=== PATIENT | male | born 1970 | race Caucasian/White ===

== ENCOUNTER 2017-11-19 14:48 | Emergency (ER) | payer BC, OTHER ==
[~2017-11-19] VITALS: Ht 190.5 cm; Wt 84.8 kg
[2017-11-19 15:00] VITALS: TEMP 37; Ht 190.5 cm; Wt 84.8 kg
[2017-11-19] MEDS ORDERED: SODIUM CHLORIDE 0.9% 500ML 500 ML IV SCH (16:30)
--- NOTE | 2017-11-19 16:37 | EMERGENCY ROOM VISIT NOTE ---
History First contact with patient: 16:11 (Alka. Bhatia MD) First contact with patient: 16:11 (Jonathan Doll M.D.) Chief Complaint: VOMITING Stated Complaint: LIGHTHEADEDNESS, NAUSEA, VOMITING, ABDOMINAL PAIN Nursing Triage Summary: Pt states, "I have midsection stomach pain that started last . I woke up with that, nausea and lightheadedness. I started feeling better Fri and through the weekend. Then this morning about 4am it hit again. I get intermittent chills. Over the past three hours I have thrown up intermittently. I threw up three times." Denies diarrhea. (Alka. Bhatia MD) History of Present Illness The patient is a 47 year old male who presents to the Emergency Room with complaints of abdominal pain associated with dizziness, nausea and vomiting. Pain started but is intermittent, and felt in the epigastric region and described as indigestion pain. There is no radiation. Triggers that make the pain/nausea worse include ambulation and bending over, rest makes the pain better but it is difficult to find a comfortable position for long. Patient did not try any OTC meds. Patients symptoms improved over the weekend, but woke him up from sleep this morning. Symptoms did not improve with sleep this time. Nausea lead to 3 episodes of vomiting today - non bloody. Associated symptoms include diaphoresis with vomiting, felt like the room was spinning, and tremors. Denies alcohol and tobacco usage. He otherwise denies fevers/chills, headaches, CP, palpitations, dyspnea, lower extremity swelling or rashes. His appetite is diminished, he denies urinary symptoms, although he admits to concentrated urine, and he is stooling appropriately. No recent travel. Sick contacts: people at work have had stomach bug. No previous abdominal, pelvic, back surgeries. Source of History: patient Onset: 4 days ago Symptom Intensity: minimal Quality: ache Timing: intermittent Modifying Factors (Worsening): movement Modifying Factors (Relieving): rest Associated Symptoms: + diaphoresis, + vomiting, + abdominal pain, + weakness (Alka. Bhatia MD) Review of Systems See HPI for pertinent positives and negatives. A total of ten systems were reviewed and were otherwise negative. (Alka. Bhatia MD) Social History Smoking Status: Never Smoker Smokeless Tobacco Use: No Alcohol Use: none Drug Use: none Marital Status: Housing Status: lives with family Occupation Status: employed (Alka. Bhatia MD) Current/Historical Medications Scheduled PRN Ondansetron Hcl (Zofran), 4 MG PO Q8H PRN for Nausea Physical Exam Vital Signs Date Time Temp Pulse Resp B/P (MAP) Pulse Ox O2 Delivery O2 Flow Rate FiO2 11/19/17 18:14 68 20 123/65 98 Room Air 11/19/17 16:50 84 20 136/81 98 Room Air 11/19/17 15:00 37.0 81 16 121/69 97 Room Air (Jonathan Doll M.D.) Physical Exam GENERAL: alert, anxious-appearing, thin, lying in bed, slightly tremulous, non- toxic HEAD: Normocephalic, atraumatic. No sinus tenderness. EYES: PERRL, EOMI, normal sclera and conjunctiva OROPHARYNX: No exudate, no erythema. Lips, buccal mucosa, and tongue normal and mucous membranes are tacky NECK: Supple, no nuchal rigidity, no adenopathy, non-tender LUNGS: No reproducible chest tenderness. Clear to auscultation. Normal chest wall mechanics, good air entry. No crepitations, crackles, or wheezes HEART: RRR, S1 and S2 normal, no murmurs appreciated ABDOMEN: Soft, mild epigastric tenderness - no RLQ pain, normo-active bowel sounds, no masses, no rebound or guarding. Obturator and psoas signs negative. BACK: Back is symmetrical on inspection, no deformities, no midline tenderness, no CVA tenderness. SKIN: Warm, pink, dry. No erythema, rashes, or bruising. EXTREMITIES: Grossly normal. Moving all 4 limbs, strength 5/5. No pitting edema. Calves non tender. NEURO: Alert, Ox3. No focal deficits. Normal sensorium, cranial nerves II-XII grossly intact, normal speech. PSYCH: Mood and affect appropriate. (Alka. Bhatia MD) Medical Decision & Procedures Laboratory Results 11/19/17 16:35 Red Blood Count 5.46, Mean Corpuscular Volume 87.5, Mean Corpuscular Hemoglobin 31.3, Mean Corpuscular Hemoglobin Concent 35.8, Mean Platelet Volume 11.3, Neutrophils (%) (Auto) 86.3, Lymphocytes (%) (Auto) 9.2, Monocytes (%) (Auto) 3.9, Eosinophils (%) (Auto) 0.2, Basophils (%) (Auto) 0.2, Neutrophils # (Auto) 11.16, Lymphocytes # (Auto) 1.19, Monocytes # (Auto) 0.51, Eosinophils # (Auto) 0.03, Basophils # (Auto) 0.03 11/19/17 16:35 Test 11/19/17 16:35 11/19/17 17:00 White Blood Count 12.94 K/uL (4.8-10.8) Red Blood Count 5.46 M/uL (4.7-6.1) Hemoglobin 17.1 g/dL (14.0-18.0) Hematocrit 47.8 % (42-52) Mean Corpuscular Volume 87.5 fL (80-100) Mean Corpuscular Hemoglobin 31.3 pg (25-34) Mean Corpuscular Hemoglobin Concent 35.8 g/dl (32-36) Platelet Count 197 K/uL (130-400) Mean Platelet Volume 11.3 fL (7.4-10.4) Neutrophils (%) (Auto) 86.3 % Lymphocytes (%) (Auto) 9.2 % Monocytes (%) (Auto) 3.9 % Eosinophils (%) (Auto) 0.2 % Basophils (%) (Auto) 0.2 % Neutrophils # (Auto) 11.16 K/uL (1.4-6.5) Lymphocytes # (Auto) 1.19 K/uL (1.2-3.4) Monocytes # (Auto) 0.51 K/uL (0.11-0.59) Eosinophils # (Auto) 0.03 K/uL (0-0.5) Basophils # (Auto) 0.03 K/uL (0-0.2) RDW Standard Deviation 40.2 fL (36.4-46.3) RDW Coefficient of Variation 12.6 % (11.5-14.5) Immature Granulocyte % (Auto) 0.2 % Immature Granulocyte # (Auto) 0.02 K/uL (0.00-0.02) Urine Color YELLOW Urine Appearance CLEAR (CLEAR) Urine pH 7.5 (4.5-7.5) Urine Specific [place] 1.019 (1.000-1.030) Urine Protein NEG (NEG) Urine Glucose (UA) NEG (NEG) Urine Ketones 3+ (NEG) Urine Occult Blood NEG (NEG) Urine Nitrite NEG (NEG) Urine Bilirubin NEG (NEG) Urine Urobilinogen NEG (NEG) Urine Leukocyte Esterase NEG (NEG) Anion Gap 10.0 mmol/L (3-11) Est Creatinine Clear Calc Drug Dose 101.2 ml/min Estimated GFR () 93.8 Estimated GFR (Non- 81.0 BUN/Creatinine Ratio 10.7 (10-20) Calcium Level 9.1 mg/dl (8.5-10.1) Total Bilirubin 0.6 mg/dl (0.2-1) Aspartate Amino Transf (AST/SGOT) 17 U/L (15-37) Alanine Aminotransferase (ALT/SGPT) 27 U/L (12-78) Alkaline Phosphatase 58 U/L (45-117) Troponin I < 0.015 ng/ml (0-0.045) Total Protein 8.6 gm/dl (6.4-8.2) Albumin 4.5 gm/dl (3.4-5.0) Globulin 4.1 gm/dl (2.5-4.0) Albumin/Globulin Ratio 1.1 (0.9-2) Lipase 107 U/L (73-393) Thyroid Stimulating Hormone (TSH) 0.714 uIu/ml (0.300-4.500) Influenza Type A Antigen Neg for Influ A (NEG) Influenza Type B Antigen Neg for Influ B (NEG) Laboratory results reviewed by me (Jonathan Doll M.D.) Medications Administered Medications (Trade) Dose Ordered Sig/Adrianne Route Start Time Stop Time Status Last Admin Dose Admin Sodium Chloride 500 ml @ 125 mls/hr Q4H IV 11/19/17 16:30 11/19/17 18:54 DC 11/19/17 16:30 125 MLS/HR Ondansetron HCl (Zofran Inj) 4 mg NOW STAT IV 11/19/17 16:51 11/19/17 16:52 DC 11/19/17 17:04 4 MG Al Hydroxide/Mg Hydroxide (Maalox Susp) 30 ml STK-MED ONCE .ROUTE 11/19/17 17:02 11/19/17 17:03 DC 11/19/17 17:04 30 ML Lidocaine HCl (Viscous Lidocaine 2% Soln) 20 ml STK-MED ONCE .ROUTE 11/19/17 17:02 11/19/17 17:03 DC 11/19/17 17:04 20 ML (Jonathan Doll M.D.) ED Course 16:20 Patient assessed 16:37 Ordered labs, IVF, IV Zofran and GI cocktail 15:02: Patient re-evaluated, states feeling better, less tremulous (Alka. Bhatia MD) Medical Decision Prior records/ancillary studies reviewed. Triage Nursing notes reviewed. Additional history obtained from . The patient's history was concerning for abdominal pain. Differential diagnosis: Etiologies such as appendicitis, diverticulitis, PUD, biliary pathology, UTI, pancreatitis, obstruction, mesenteric ischemia, aortic pathology, infections, inflammatory bowel disease, renal colic, as well as others were entertained. Physical examination findings: As above. ER treatment provided: IVF NSS, IV Zofran 4mg, GI cocktail On reassessment the patient felt better. Diagnostics interpreted by me: The labs revealed mild leukocytosis, but otherwise normal CBC, BMP, LFT, lipase. Negative flu serology. Urinalysis revealed significant ketones 3+ but no other signs of infection. The patient was informed about the findings as listed above. All questions were answered and he was pleased with the treatment. He was advised for rest, increase PO fluid intake and anti-emetics as needed, Return instructions were outlined and the patient was discharged in stable condition. Outpatient prescription management: PO Zofran 4mg q8h PRN nausea Referral: The patient was referred back to their primary care physician for follow-up in 2 to 3 days for a recheck of the current condition. (Alka. Bhatia MD) Medication Reconcilliation Current Medication List: was personally reviewed by me (Alka. Bhatia MD) Blood Pressure Screening Patient's blood pressure: Normal blood pressure (Alka. Bhatia MD) Impression Primary Impression: Dehydration Additional Impression: Vomiting Departure Information Dispostion Home / Self-Care Condition GOOD Prescriptions Ondansetron Hcl (ZOFRAN) 4 Mg Tab 4 MG PO Q8H Y for Nausea, #14 TAB Prov: Alka. Bhatia MD 11/19/17 Referrals No Doctor, Assigned (PCP) Patient Instructions My [facility] Resident Tracking Resident Involvement: Resident Care Provided Care Provided: Adult Hospital Medicine (Alka. Bhatia MD) Problem Qualifiers Additional Impression: Vomiting Vomiting type: unspecified Vomiting Intractability: non-intractable Nausea presence: with nausea Qualified Codes: R11.2 - Nausea with vomiting, unspecified
[2017-11-19 16:43] LABS: BASO % 0.2 %; BASO ABS # 0.03 K/uL (0-0.2); EOS % 0.2 %; EOS ABS # 0.03 K/uL (0-0.5); HEMATOCRIT 47.8 % (42-52); HEMOGLOBIN 17.1 g/dL (14.0-18.0); IG# 0.02 K/uL (0.00-0.02); LYMPH % 9.2 %; LYMPH ABS # 1.19 K/uL (1.2-3.4); MEAN CELL VOLUME 87.5 fL (80-100); MEAN CORPUSCULAR HEMOGLOBIN 31.3 pg (25-34); MEAN CORPUSCULAR HGB CONC 35.8 g/dl (32-36); MEAN PLATELET VOLUME 11.3 fL (7.4-10.4); MONO % 3.9 %; MONO ABS # 0.51 K/uL (0.11-0.59); NEUT % 86.3 %; NEUT ABS # 11.16 K/uL (1.4-6.5); PLATELET COUNT 197 K/uL (130-400); RED CELL DISTRIBUTION WIDTH CV 12.6 % (11.5-14.5); RED CELL DISTRIBUTION WIDTH SD 40.2 fL (36.4-46.3); WHITE BLOOD COUNT 12.94 K/uL (4.8-10.8)
--- NOTE | 2017-11-19 16:48 | EMERGENCY ROOM VISIT NOTE ---
ED Visit Note First contact with patient: 16:11 The patient was seen and examined with Dr. Bhatia, resident physician. I agree with the history, physical and findings. Please see the note for disposition and details.
[2017-11-19] MEDS ORDERED: ONDANSETRON INJ 2 MG/ML 2 ML VIAL IV STA (16:51)
[2017-11-19] MEDS ORDERED: GI COCKTAIL PO ONE (17:00)
[2017-11-19] MEDS ORDERED: ALUMINUM/MAGNESIUM SUSP 30 ML UDC ONE (17:02)
[2017-11-19] MEDS ORDERED: LIDOCAINE HCL 2% VISC SOLN 20 ML UDC ONE (17:02)
[2017-11-19 17:03] LABS: ALBUMIN 4.5 gm/dl (3.4-5.0); ALT/SGPT 27 U/L (12-78); BLOOD UREA NITROGEN 12 mg/dl (7-18); CALCIUM 9.1 mg/dl (8.5-10.1); CARBON DIOXIDE 27 mmol/L (21-32); CREATININE 1.09 mg/dl (0.60-1.40); GLUCOSE 110 mg/dl (70-99); LIPASE 107 U/L (73-393); POTASSIUM 3.6 mmol/L (3.5-5.1); SODIUM 140 mmol/L (136-145)
[2017-11-19 17:14] LABS: ALKALINE PHOSPHATASE 58 U/L (45-117); AST/SGOT 17 U/L (15-37); TOTAL PROTEIN 8.6 gm/dl (6.4-8.2)
[2017-11-19 17:32] LABS: INFLUENZA B ANTIGEN Neg for Influ B (NEG)
[2017-11-19 18:14] VITALS: BP 123/65; PULSE 68; O2SAT 98
[2017-11-19] MEDS ORDERED: ONDA4TAB46 PO (18:19)
== END 2017-11-19 18:36 | disposition home or self-care (01) ==
LOC: C.EDB 14:51
DX: E86.0 Dehydration (principal); R11.2 Nausea with vomiting, unspecified; R10.13 Epigastric pain